=== PATIENT | female | born 1925 | race Caucasian/White ===

== ENCOUNTER 2016-04-21 19:29 | Emergency (ER) | payer OTHER ==
[~2016-04-21] VITALS: Ht 157.5 cm; Wt 59.9 kg
[~2016-04-21 19:29] MED LIST: ASPI-807 PO; ATOR80TA PO; CHOL100044 PO; CRAN500C4 PO; FAMO-131 PO; FLUO10CA26 PO; FLUT16SP2 NS; INSU100V3 IJ; LATA2.5D2 EACHEYE; LEVO5DRO6 EACHEYE; LOSA25TA3 PO; METO100T PO; MULT1CAP34 PO; NITR0.4T SL; NPH,100V SQ; TEMA15CA5 PO
[2016-04-21 20:17] LABS: BASOPHILS # (AUTO) 0.7 /CMM (0.0-0.2); DIFF TOTAL % 100 %; EOSINOPHILS # (AUTO) 0.1 /CMM (0.0-0.7); EOSINOPHILS % (AUTO) 0.4 % (0.0-6.0); HEMATOCRIT 37 % (33-45); HEMOGLOBIN 12.1 g/dL (11.5-14.8); LYMPHOCYTES # (AUTO) 1.5 /CMM (0.8-4.8); LYMPHOCYTES % (AUTO) 8.6 % (20.0-44.0); MEAN CORPUSCULAR HEMOGLOBIN 29 PG (26.0-33.0); MEAN CORPUSCULAR HGB CONC 33 g/dl (31.0-36.0); MEAN CORPUSCULAR VOLUME 87 fL (82-100); MONOCYTES # (AUTO) 1.5 /CMM (0.1-1.30); MONOCYTES % (AUTO) 8.2 % (2.0-12.0); NEUTROPHILS # (AUTO) 14.2 /CMM (1.8-8.9); NEUTROPHILS % (AUTO) 78.8 % (43.0-81.0); PLATELET COUNT (AUTO) 310 /CMM (150-450)
[2016-04-21 20:33] LABS: CALCIUM, SERUM 9.1 mg/dL (8.5-10.1); POTASSIUM 4.3 mmol/L (3.5-5.1)
[2016-04-21 20:37] LABS: ALBUMIN 3.7 g/dL (3.4-5.0); BILIRUBIN,DIRECT 0.1 mg/dL (0.0-0.2); BILIRUBIN,TOTAL 0.5 mg/dL (0.2-1.0); INDIRECT BILIRUBIN 0.4 mg/dL (0.0-1.1); TOTAL PROTEIN, SERUM 7.1 g/dL (6.4-8.2)
[2016-04-21 20:44] LABS: KETONES,URINE NEGATIVE (NEGATIVE); LEUKOCYTE ESTERASE ,URINE NEGATIVE (NEGATIVE); PH,URINE 5.5 (5.0-8.0)
[2016-04-21 20:45] LABS: ADD UA MICROSCOPIC YES
[2016-04-21 20:49] LABS: ADD URINE CULTURE YES; RBC,URINE 0-2 /HPF (0-2)
[2016-04-21 22:33] VITALS: BP 146/77
== END 2016-04-21 22:34 | disposition home or self-care (01) ==
LOC: ER 19:30
DX: N39.0 Urinary tract infection, site not specified (principal); K59.00 Constipation, unspecified; E78.00 Pure hypercholesterolemia, unspecified; E11.9 Type 2 diabetes mellitus without complications; I25.10 Atherosclerotic heart disease of native coronary artery without angina pectoris; I25.2 Old myocardial infarction; K21.9 Gastro-esophageal reflux disease without esophagitis; Z79.82 Long term (current) use of aspirin; Z88.8 Allergy status to other drugs, medicaments and biological substances; Z91.041 Radiographic dye allergy status
CPT/HCPCS: 36415; 80048; 80076; 81001; 83690; 85025; 87086; 99284; A4606; 81000-TC; Z7610